=== PATIENT | female | born 2005 | race Caucasian/White ===

== ENCOUNTER 2024-11-26 14:01 | Emergency (ER) | payer OTHER ==
[~2024-11-26] VITALS: Ht 160 cm; Wt 50.0 kg
[2024-11-26 14:06] VITALS: O2SAT 99
[2024-11-26] MEDS ORDERED: LEVE1000 MT (14:11)
[2024-11-26] MEDS: ACETAMINOPHEN 325MG TABLET PO ONE (14:48)
[2024-11-26] MEDS: LACTATED RINGERS 1,000 ML IV SCH (14:48)
[2024-11-26] MEDS: LEVETIRACETAM 500MG PREMIX 100 ML IV ONE ×2 (14:48→15:01)
[2024-11-26 14:56] LABS: BASOPHILS % 0.8 % (0.0-2.0); EOSINOPHILS % 0.6 % (0.0-5.0); HEMATOCRIT. 40.6 % (36.0-48.0); HEMOGLOBIN. 13.5 g/dL (12.0-16.0); LYMPHOCYTES % 37.4 % (20.0-50.0); MEAN PLATELET VOLUME 7.6 fl (7.4-10.4); MONOCYTES % 5.6 % (2.0-8.0); NEUTROPHILS % 55.6 % (40.0-76.0); PLATELET 255 x1000/uL (130-400); RED BLOOD CELL COUNT 4.74 mill/uL (4.2-5.4); RED CELL DISTRIBUTION WIDTH 12.9 % (11.6-14.6)
[2024-11-26 15:16] LABS: CREATININE 0.9 mg/dL (0.6-1.0); UREA NITROGEN BLOOD 8 mg/dL (9-23)
[2024-11-26 15:18] LABS: ASPARTATE AMINOTRANSFERASE 14 IU/L (<34); BILIRUBIN TOTAL 1.0 mg/dL (0.1-1.0)
[2024-11-26 15:19] LABS: PROTEIN TOTAL 7.5 g/dL (6.0-8.3)
[2024-11-26 15:43] LABS: HCG SCREEN NEGATIVE
[2024-11-26 16:31] VITALS: BP 112/82; PULSE 82; RESP 14; TEMP 37.2; O2SAT 100
== END 2024-11-26 16:32 | disposition home or self-care (01) ==
LOC: ER 14:01
DX: S09.90XA Unspecified injury of head, initial encounter (principal); R56.9 Unspecified convulsions; X58.XXXA Exposure to other specified factors, initial encounter; Y93.89 Activity, other specified; Y92.89 Other specified places as the place of occurrence of the external cause; Y99.8 Other external cause status
CPT/HCPCS: 99285; 96365; 70450; 96366; 80053; 84703; 85025; 36415; J1953; 96368